=== PATIENT | female | born 1990 | race Caucasian/White ===

== ENCOUNTER 2016-11-17 18:25 | Inpatient (IN) | payer OTHER ==
[~2016-11-17] VITALS: Ht 170.2 cm; Wt 96.6 kg
[2016-11-17 18:31] VITALS: Ht 170.2 cm; Wt 96.6 kg
--- NOTE | 2016-11-17 19:10 | RADRPT ---
PROCEDURE: US OB CLINICAL INDICATION: Decreased movements TECHNIQUE: Multiple sonographic images of the pelvis were obtained. The images were reviewed on a PACS workstation. COMPARISON: None FINDINGS: The cervix is not well visualized. There is a single viable intrauterine gestation. Cardiac activity is present with 148 beats per minute. There is a vertex presentation. The placenta is anterior. There is no evidence for an abruption or placenta previa. There is a subjectively normal amount of amniotic fluid. Measurements were made in order to determine age. The results are as follows (cm): BPD =8.67 HC =31.85 AC =34.16 FL =7.27 Estimated gestational age by ultrasound of approximately 36 weeks, 4 days. The estimated date of delivery by ultrasound is 12/11/2016. Reported gestational age by LMP of approximately 35 weeks, 4 days. The reported date of delivery by LMP is 12/18/2016. EFW = 3155 grams (89th percentile) IMPRESSION: Single viable intrauterine gestation of approximately 36 weeks, 4 days . The estimated date of delivery is 12/11/2016 . Dating by ultrasound is within 1 week of dating by LMP. Estimated weight in the 89th percentile. RPTAT: EE Physician Misty Date Time Electronically viewed and signed by Physician Misty on 11/17/2016 19:09 /
--- NOTE | 2016-11-17 19:10 | RADRPT ---
PROCEDURE: US OB biophysical profile. CLINICAL INDICATION: evaluation TECHNIQUE: Multiple sonographic images of the pelvis were obtained. The images were reviewed on a PACS workstation. COMPARISON: No prior studies are available for comparison. FINDINGS: There is a single viable intrauterine gestation. Cardiac activity is present with 144 beats per min mel. There is a vertex presentation. The placenta is anterior. There is no evidence of placental abruption. There is a normal amount of amniotic fluid with an ALMA = 11.0 cm. Biophysical profile: movement 2/2 tone 2/2. breathing 2/2 ALMA 2/2 Total 05/29 RPTAT: AA . IMPRESSION: Normal biophysical profile. Normal ALMA. Physician Misty Date Time Electronically viewed and signed by Physician Misty on 11/17/2016 19:10 /
[2016-11-17 21:22] LABS: BASOPHILS % 0.3 % (0.0-2.0); EOSINOPHILS % 0.2 % (0.0-7.0); HEMATOCRIT 41.8 % (37.0-47.0); HEMOGLOBIN 14.7 g/dl (12.0-16.0); LYMPHOCYTES # 2.2 10^3/ul (0.8-2.9); LYMPHOCYTES % 17.8 % (15.0-51.0); MEAN CORPUSCULAR HEMOGLOBIN 29.3 pg (29.0-33.0); MEAN CORPUSCULAR HGB CONC 35.1 g/dl (32.0-37.0); MEAN CORPUSCULAR VOLUME 83.4 fl (82.0-101.0); MONOCYTE # 0.9 10^3/ul (0.3-0.9); MONOCYTES % 7.4 % (0.0-11.0); NEUTROPHIL # 9.2 10^3/ul (1.6-7.5); NEUTROPHILS % 74.3 % (39.0-77.0); PLATELET COUNT 196 10^3/UL (140-440); RED BLOOD COUNT 5.01 10^6/ul (4.20-5.40); RED CELL DISTRIBUTION WIDTH 13.2 % (11.5-14.5); UNCORRECTED WBC 12.4 10^3/ul (4.8-10.8); WHITE BLOOD COUNT 12.4 10^3/ul (4.8-10.8)
[2016-11-17 21:23] LABS: CONDITION 1
[2016-11-17 21:23] LABS: ADD UMIC YES; URINE BILIRUBIN (Dip) NEGATIVE (NEGATIVE); URINE BLOOD (Dip) NEGATIVE (NEGATIVE); URINE COLOR LT. YELLOW (YELLOW); URINE GLUCOSE (Dip) NEGATIVE (NEGATIVE); URINE KETONES (Dip) 40 (NEGATIVE); URINE LEUKOCYTE ESTERASE (Dip) 1+ (NEGATIVE); URINE NITRITE (Dip) NEGATIVE (NEGATIVE); URINE TOTAL PROTEIN (Dip) NEGATIVE (NEGATIVE); URINE UROBILINOGEN (Dip) 0.2 E.U./dL (0.1-1.0)
[2016-11-17 21:25] LABS: ALBUMIN 3.6 g/dl (3.3-4.9); POTASSIUM 3.7 mmol/L (3.5-5.1)
[2016-11-17 21:27] LABS: CREATININE 0.53 mg/dl (0.44-1.00); INR 1.01; PROTIME 13.3 Sec (12.2-14.2)
[2016-11-17 21:28] LABS: ALBUMIN/GLOBULIN RATIO 0.9; BILIRUBIN,INDIRECT 0.5 mg/dl (0-1.1); BILIRUBIN,TOTAL 0.5 mg/dl (0.2-1.3); CALCIUM 9.4 mg/dl (8.4-10.2); PARTIAL THROMBOPLASTIN TIME 28.8 Sec (25.0-35.0); TOTAL PROTEIN 7.6 g/dl (6.1-8.1); URIC ACID 4.5 mg/dl (3.1-7.9)
[2016-11-17 21:50] LABS: BACTERIA,URINE MANY
[2016-11-17 21:51] LABS: SQUAMOUS EPITHELIAL CELL,UR MANY; URINE RBCS 0-2 /HPF (0)
[2016-11-18] MEDS: MULTIVIT/MIN/FOLATE/IRON/PREN TAB PO SCH (10:03)
--- NOTE | 2016-11-18 15:55 | HP ---
Date/Time of Note Date/Time of Note DATE: 11/18/16 TIME: 15:50 OB - History Hx of Present Chief Complaint: Decreased movement. Estimated Due Date: Dec 18, 2016 : 3 Para: 1 Care: Good Care Ultrasounds: Normal mid trimester US Obstetrical Complications: None Medical Complications: None Past Family/Social History * Past Medical, Surgical, Family and Obstetric Histories reviewed from chart. OB Admission Exam Vital Signs Vital Signs BP 143/73 on admission Physical Exam HEENT: WNL Heart: Rhythm Normal Lungs: Clear Abdomen: WNL Extremities: Normal Reflexes: Normal Heart Rate: 140's Accelerations: Accelerations Present Decelerations: No Decelerations Varibility: Moderate Last 72 hours Lab Results CBC & BMP 11/17/16 20:55 Liver Function Test 11/17/16 20:55 Alanine Aminotransferase (ALT/SGPT) 20 Albumin 3.6 Alkaline Phosphatase 126 H Aspartate Amino Transf (AST/SGOT) 18 Direct Bilirubin 0.00 Total Protein 7.6 OB Assessment/Plan Reason for admission: other Other Assessment: R/O preeclampsia Plan: Other Other plan: Admit. PIH panel 24 hour urine collection. FERNANDO AVINA MD Nov 18, 2016 15:55
[2016-11-18 19:02] LABS: COLLECTION PERIOD 24 hrs
[2016-11-18 20:14] LABS: COLLECTION PERIOD 24 hrs
[2016-11-18 20:17] LABS: SCRET 0.53 mg/dl (0.44-1.00)
[2016-11-19] MEDS: MULTIVIT/MIN/FOLATE/IRON/PREN TAB PO SCH (08:40)
--- NOTE | 2016-11-20 00:05 | DS ---
DATE OF ADMISSION: 11/17/2016 DATE OF DISCHARGE: 11/19/2016 ADMITTING DIAGNOSIS: at 35 weeks, rule out preeclampsia. HISTORY: A 26-year-old female, 3, para 1, estimated date of delivery 12/18/2016, at 35 week s' gestation presented with complaint of decreased movement. On evaluation, the patient was n oted to have elevated blood pressure, blood pressure 143/73. The patient was admitted for evaluatio n of preeclampsia. The patient had workup with -induced hypertension panel and 24-hour uri ne collection. The patient was monitored closely. The patient's blood pressure improved with rest. The results of -induced hypertension panel were normal. Twenty-hour urine collection was done, but the total protein was not available as it was sent to an outside laboratory which would t rosales a few days for the results to come back. The patient's blood pressure has been normal. h eart tracing has been reassuring. The patient is discharged on 11/19/2016. CONDITION ON DISCHARGE: Stable. DISCHARGE INSTRUCTIONS: Diet regular. Activities as tolerated. MEDICATION: Continue with vitamins. FOLLOWUP: In 2 days for antepartum testing. FINAL DIAGNOSES: 1. , not delivered. 2. Decreased movements. 3. Gestational hypertension. Dictated By: FERNANDO AVINA MD GD/NTS Conf#: [id number] DID#: [id number]
== END 2016-11-19 12:47 | disposition home or self-care (01) | DRG 782 ==
LOC: OBT 18:25 → L-D 18:25 → OBT 20:11 → OBG 20:11
PROVIDERS: ADMIT Obstetrics & Gynecology; ATTEND Obstetrics & Gynecology
DX: O76 Abnormality in fetal heart rate and rhythm complicating labor and delivery (principal); O13.3 Gestational [pregnancy-induced] hypertension without significant proteinuria, third trimester; Z3A.35 35 weeks gestation of pregnancy
CPT/HCPCS: 76815; 76818; 80053; 81001; 81003; 82575; 84156; 84560; 85025; 85384; 85610; 85730; G0463

== ENCOUNTER 2016-11-21 08:25 | Outpatient (CLI) | payer OTHER ==
[~2016-11-21] VITALS: Ht 170.2 cm; Wt 98.1 kg
[2016-11-21 08:32] VITALS: BP 125/65; PULSE 96; RESP 19; Ht 170.2 cm; Wt 98.1 kg
[2016-11-21 08:37] LABS: URINE BLOOD (Dip) POC Negative (NEGATIVE)
--- NOTE | 2016-11-21 09:03 | RADRPT ---
PROCEDURE: OB ultrasound for biophysical profile with ALMA. CLINICAL INDICATION: induced hypertension. Follow-up. TECHNIQUE: Multiple sonographic images of the gravid uterus were obtained. The images were review ed on a PACS workstation. COMPARISON: Exam day 11/17/2016. FINDINGS: breathing movement = 2/2 tone = 2/2 motion = 2/2 ALMA = 2/2 There is a single viable intrauterine gestation with cardiac and a heart rate of 137 bpm. Ther e is a cephalic presentation and an anterior, grade 1/2 placenta. There is no evidence of abruption or placenta previa. ALMA = 7.13 cm IMPRESSION: 1. Single viable intrauterine gestation. 2. Biophysical profile = 8/8. 3. ALMA = 7.13 cm, consistent with borderline oligohydramnios. RPTAT: GG .Tenzin Barber MD, Date Time Electronically viewed and signed by .Tenzin Barber MD, on 11/21/2016 09:03 .P/
--- NOTE | 2016-11-21 09:31 | TRIAGE ---
OB Triage Datetime Report Generated by CPN: 11/21/2016 09:30 Datetime: 11/21/2016 09:20 Maternal Assessment Level of Consciousness: Fully Conscious DTR's/Clonus: DTRs 1+ Headache: Denies Blurred Vision: No Respiratory Effort: Unlabored Breath Sounds, Left: Clear and Equal Breath Sounds, Right: Clear and Equal Nausea/Vomiting: Denies RUQ Epigastric Pain: Denies Facial Edema: None Labor Evaluation Frequency: X1 Monitor Mode: External Duration (sec)2399: 60 Quality: Mild Pattern: Normal: <= 5 Contractions in 10 Minutes Resting Tone [place]: Relaxed Heart Rate FHR Baseline Rate: 135 Monitor Mode: External US Variability: Moderate 6-25 bpm Accelerations: 15X15 Decelerations: None Category: Category I Pain Assessment Pain Scale: 0 Pain Presence: None/Denies Pain Type: N/A Pain Goal: 3 Vaginal Exam Membrane Status: Intact Datetime: 11/21/2016 08:50 Maternal Assessment Level of Consciousness: Fully Conscious DTR's/Clonus: DTRs 1+ Headache: Denies Breath Sounds, Left: Clear and Equal Breath Sounds, Right: Clear and Equal Nausea/Vomiting: Denies RUQ Epigastric Pain: Denies Labor Evaluation Frequency: NONE Monitor Mode: External Resting Tone [place]: Relaxed Heart Rate FHR Baseline Rate: 135 Monitor Mode: External US Variability: Moderate 6-25 bpm Accelerations: 15X15 Decelerations: None Category: Category I Pain Assessment Pain Scale: 0 Pain Presence: None/Denies Pain Type: N/A Pain Goal: 3 Vaginal Exam Membrane Status: Intact Datetime: 11/21/2016 08:28 Assessment Type: Triage Maternal Assessment Level of Consciousness: Fully Conscious DTR's/Clonus: DTRs 2+; No Clonus Headache: Denies Blurred Vision: No Respiratory Effort: Unlabored; Regular Rhythm; Equal Expansion Breath Sounds, Left: Clear and Equal Breath Sounds, Right: Clear and Equal Nausea/Vomiting: Denies RUQ Epigastric Pain: Denies Lower Extremities Edema: None Degree: None Upper Extremities Edema: None Degree: None Facial Edema: None Fall Risk Assessment History of Falling: (0) No Secondary Diagnosis: (0) No Ambulatory Aid: (0) Bedrest/Nurse Assist IV Therapy: (0) No Gait: (0) Normal/Bedrest/Immobile Mental Status: (0) Oriented to Own Ability Fall Score: 0 Fall Risk Score Definition: No Risk: No action required Datetime: 11/21/2016 08:27 Time of Arrival: 11/21/2016 08:27 EGA: 36.1 Arrived By: Ambulatory Arrived From: Home Chief Complaint: PT CAME IN FOR F/U NST AND BPP FOR PIH AND 24 HR URINE COLLECTIONR ESULTS. PT DEN IES ANY HIGH BLOOD PRESSUR S/S AND STATES _ FM Movement: Present Contractions: Denies/Absent Rupture of Membranes: Denies Vaginal Bleeding: None Vaginal Discharge: Denies Recent Sexual Intercouse: Denies Abdominal Trauma: Not Applicable Patient Complaints: Other Additional Patient Complaints: NONE Time Provider Notified: 11/21/2016 08:40 Provider Notified: KAILYN Initial Plan: NST AND BPP Datetime: 11/19/2016 12:01 Temperature Route: Oral Labor Evaluation Frequency: X2/HR Monitor Mode: External Duration (sec)2399: 50 TO 60 SEC Pattern: Normal: <= 5 Contractions in 10 Minutes Resting Tone [place]: Relaxed Heart Rate FHR Baseline Rate: 130 Monitor Mode: External US FHR Baseline Changes: No Baseline Change Variability: Moderate 6-25 bpm Accelerations: 15X15 Category: Category I Datetime: 11/19/2016 11:00 Labor Evaluation Frequency: X2/HR Monitor Mode: External Duration (sec)2399: 60 TO 70 SEC Pattern: Normal: <= 5 Contractions in 10 Minutes Resting Tone [place]: Relaxed Heart Rate FHR Baseline Rate: 130 Monitor Mode: External US FHR Baseline Changes: No Baseline Change Variability: Moderate 6-25 bpm Accelerations: 15X15 Decelerations: None Category: Category I Datetime: 11/19/2016 10:00 Labor Evaluation Frequency: X3/HR Monitor Mode: External Duration (sec)2399: 60 TO 90 SEC Pattern: Normal: <= 5 Contractions in 10 Minutes Resting Tone [place]: Relaxed Heart Rate FHR Baseline Rate: 130 Monitor Mode: External US FHR Baseline Changes: No Baseline Change Variability: Moderate 6-25 bpm Accelerations: 15X15 Decelerations: None Category: Category I Datetime: 11/19/2016 09:00 Labor Evaluation Frequency: X2/HR Monitor Mode: External Duration (sec)2399: 60 TO 70 SEC Pattern: Normal: <= 5 Contractions in 10 Minutes Resting Tone [place]: Relaxed Heart Rate FHR Baseline Rate: 130 Monitor Mode: External US FHR Baseline Changes: No Baseline Change Variability: Moderate 6-25 bpm Accelerations: 15X15 Decelerations: None Category: Category I Datetime: 11/19/2016 07:50 Maternal Assessment Level of Consciousness: Fully Conscious DTR's/Clonus: DTRs 2+; No Clonus Headache: Denies Breath Sounds, Left: Clear and Equal Breath Sounds, Right: Clear and Equal Nausea/Vomiting: Denies RUQ Epigastric Pain: Denies Temperature Route: Oral Labor Evaluation Frequency: X2/HR Monitor Mode: External Duration (sec)2399: 60 SEC Pattern: Normal: <= 5 Contractions in 10 Minutes Resting Tone [place]: Relaxed Heart Rate FHR Baseline Rate: 130 Monitor Mode: External US FHR Baseline Changes: No Baseline Change Variability: Moderate 6-25 bpm Accelerations: 15X15 Decelerations: None Category: Category I Datetime: 11/19/2016 07:25 Assessment Type: Ongoing Assessment Blurred Vision: No Respiratory Effort: Unlabored; Regular Rhythm; Equal Expansion Lower Extremities Edema: None Degree: None Upper Extremities Edema: None Degree: None Facial Edema: None Fall Risk Assessment History of Falling: (0) No Secondary Diagnosis: (0) No Ambulatory Aid: (0) Bedrest/Nurse Assist IV Therapy: (0) No Gait: (0) Normal/Bedrest/Immobile Mental Status: (0) Oriented to Own Ability Fall Score: 0 Fall Risk Score Definition: No Risk: No action required Datetime: 11/19/2016 06:51 Labor Evaluation Frequency: x3 Monitor Mode: External Duration (sec)2399: 40-60 Quality: Mild Resting Tone [place]: Relaxed Contraction Comments: pt without complaint of uc pain Heart Rate FHR Baseline Rate: 130 Monitor Mode: External US FHR Baseline Changes: No Baseline Change Variability: Moderate 6-25 bpm Accelerations: 15X15 Decelerations: None Category: Category I Datetime: 11/19/2016 06:00 Labor Evaluation Frequency: x3 Monitor Mode: External Duration (sec)2399: 40-60 Quality: Mild Resting Tone [place]: Relaxed Contraction Comments: pt without complaint of uc pain Heart Rate FHR Baseline Rate: 130 Monitor Mode: External US FHR Baseline Changes: No Baseline Change Variability: Moderate 6-25 bpm Accelerations: 15X15 Decelerations: None Category: Category I Datetime: 11/19/2016 05:35 Stage of : Antepartum Temperature Route: Oral Datetime: 11/19/2016 05:00 Labor Evaluation Frequency: x3 Monitor Mode: External Duration (sec)2399: 40 Quality: Mild Resting Tone [place]: Relaxed Contraction Comments: pt without complaint of uc pain Heart Rate FHR Baseline Rate: 145 Monitor Mode: External US Variability: Moderate 6-25 bpm Accelerations: 15X15 Decelerations: None Category: Category I Datetime: 11/19/2016 04:00 Labor Evaluation Frequency: x3 Monitor Mode: External Duration (sec)2399: 50-60 Quality: Mild Resting Tone [place]: Relaxed Contraction Comments: pt without complaint of uc pain. Heart Rate FHR Baseline Rate: 130 Monitor Mode: External US FHR Baseline Changes: No Baseline Change Variability: Moderate 6-25 bpm Accelerations: 15X15 Decelerations: Variable Category: Category II Datetime: 11/19/2016 03:00 Labor Evaluation Frequency: x1 Monitor Mode: External Duration (sec)2399: 40 Quality: Mild Resting Tone [place]: Relaxed Contraction Comments: pt without complaint of uc pain Heart Rate FHR Baseline Rate: 135 Monitor Mode: External US FHR Baseline Changes: No Baseline Change Variability: Moderate 6-25 bpm Accelerations: 15X15 Decelerations: Variable Category: Category II Datetime: 11/19/2016 02:00 Labor Evaluation Frequency: x2 Monitor Mode: External Duration (sec)2399: 40-70 Quality: Mild Resting Tone [place]: Relaxed Contraction Comments: pt without complaint of uc pain Heart Rate FHR Baseline Rate: 140 Monitor Mode: External US Variability: Moderate 6-25 bpm Accelerations: 15X15 Decelerations: Variable Category: Category II Datetime: 11/19/2016 01:00 Labor Evaluation Frequency: x1 Monitor Mode: External Duration (sec)2399: 90 Quality: Mild Resting Tone [place]: Relaxed Contraction Comments: pt without complant of uc pain Heart Rate FHR Baseline Rate: 135 Monitor Mode: External US Variability: Moderate 6-25 bpm Accelerations: 15X15 Decelerations: Variable Category: Category II Datetime: 11/19/2016 00:05 Maternal Assessment Level of Consciousness: Fully Conscious Datetime: 11/19/2016 00:01 Stage of : Antepartum Temperature Route: Oral Datetime: 11/19/2016 00:00 Labor Evaluation Frequency: x2 Monitor Mode: External Duration (sec)2399: 40 Quality: Mild Resting Tone [place]: Relaxed Contraction Comments: pt without complaint of uc pain Heart Rate FHR Baseline Rate: 135 Monitor Mode: External US FHR Baseline Changes: No Baseline Change Variability: Moderate 6-25 bpm Accelerations: 15X15 Decelerations: Variable Category: Category II Comments: pt without complaint of uc pain Datetime: 11/18/2016 23:00 Labor Evaluation Frequency: x4 Monitor Mode: External Duration (sec)2399: 50-100 Quality: Mild Resting Tone [place]: Relaxed Contraction Comments: pt without complaint of uc pain. Heart Rate FHR Baseline Rate: 140 Monitor Mode: External US Variability: Moderate 6-25 bpm Accelerations: 15X15 Decelerations: Variable Category: Category II Datetime: 11/18/2016 22:00 Labor Evaluation Frequency: x2 Monitor Mode: External Duration (sec)2399: 40-60 Quality: Mild Resting Tone [place]: Relaxed Contraction Comments: pt without complaint of uc pain Heart Rate FHR Baseline Rate: 140 Monitor Mode: External US FHR Baseline Changes: No Baseline Change Variability: Moderate 6-25 bpm Accelerations: 15X15 Decelerations: Variable Category: Category II Datetime: 11/18/2016 21:00 Labor Evaluation Frequency: x1 Monitor Mode: External Duration (sec)2399: 60 Quality: Mild Resting Tone [place]: Relaxed Contraction Comments: pt without complaint of uc pain Heart Rate FHR Baseline Rate: 145 Monitor Mode: External US Variability: Moderate 6-25 bpm Accelerations: 15X15 Decelerations: Variable Category: Category II Pain Assessment Pain Scale: 0 Pain Presence: None/Denies Datetime: 11/18/2016 20:32 Comments: EFM off Pt up OOB to shower Datetime: 11/18/2016 20:00 Assessment Type: Ongoing Assessment Maternal Assessment Level of Consciousness: Fully Conscious DTR's/Clonus: DTRs 2+; No Clonus Headache: Denies Blurred Vision: No Respiratory Effort: Unlabored; Regular Rhythm; Equal Expansion Breath Sounds, Left: Clear and Equal Breath Sounds, Right: Clear and Equal Nausea/Vomiting: Denies RUQ Epigastric Pain: Denies Lower Extremities Edema: None Degree: None Upper Extremities Edema: None Degree: None Facial Edema: None Fall Risk Assessment History of Falling: (0) No Secondary Diagnosis: (0) No Ambulatory Aid: (0) Bedrest/Nurse Assist IV Therapy: (0) No Gait: (0) Normal/Bedrest/Immobile Mental Status: (0) Oriented to Own Ability Fall Score: 0 Fall Risk Score Definition: No Risk: No action required Labor Evaluation Frequency: x2 Monitor Mode: External Duration (sec)2399: 40-50 Quality: Mild Resting Tone [place]: Relaxed Contraction Comments: pt without complaint of uc pain Heart Rate FHR Baseline Rate: 140 Monitor Mode: External US Variability: Moderate 6-25 bpm Accelerations: 15X15 Decelerations: None Category: Category I Pain Assessment Pain Scale: 0 Pain Presence: None/Denies Datetime: 11/18/2016 19:52 Stage of : Antepartum Temperature Route: Oral Datetime: 11/18/2016 19:00 Labor Evaluation Frequency: x1 Monitor Mode: External Duration (sec)2399: 70 Quality: Mild Resting Tone [place]: Relaxed Heart Rate FHR Baseline Rate: 135 Monitor Mode: External US FHR Baseline Changes: No Baseline Change Variability: Moderate 6-25 bpm Accelerations: 15X15 Decelerations: Variable Datetime: 11/18/2016 18:00 Labor Evaluation Frequency: x4 Monitor Mode: External Duration (sec)2399: 60-80 Quality: Mild Resting Tone [place]: Relaxed Heart Rate FHR Baseline Rate: 140 Monitor Mode: External US FHR Baseline Changes: No Baseline Change Variability: Moderate 6-25 bpm Accelerations: 15X15 Decelerations: None Pain Assessment Pain Scale: 0 Pain Presence: None/Denies Datetime: 11/18/2016 17:00 Labor Evaluation Frequency: x5 Monitor Mode: External Duration (sec)2399: 60-80 Quality: Mild Resting Tone [place]: Relaxed Heart Rate FHR Baseline Rate: 140 Monitor Mode: External US FHR Baseline Changes: No Baseline Change Variability: Moderate 6-25 bpm Accelerations: 15X15 Decelerations: None Pain Assessment Pain Scale: 0 Pain Presence: None/Denies Datetime: 11/18/2016 16:00 Labor Evaluation Frequency: x6 Monitor Mode: External Duration (sec)2399: 60-80 Quality: Mild Resting Tone [place]: Relaxed Heart Rate FHR Baseline Rate: 140 Monitor Mode: External US FHR Baseline Changes: No Baseline Change Variability: Moderate 6-25 bpm Accelerations: 15X15 Decelerations: None Category: Category I Pain Assessment Pain Scale: 0 Pain Presence: None/Denies Datetime: 11/18/2016 15:00 Labor Evaluation Frequency: x5 Monitor Mode: External Duration (sec)2399: 70 Quality: Mild Resting Tone [place]: Relaxed Heart Rate FHR Baseline Rate: 135 Monitor Mode: External US FHR Baseline Changes: No Baseline Change Variability: Moderate 6-25 bpm Accelerations: 15X15 Decelerations: None Category: Category I Pain Assessment Pain Scale: 0 Pain Presence: None/Denies Pain Type: N/A Datetime: 11/18/2016 14:00 Labor Evaluation Frequency: x5 Monitor Mode: External Duration (sec)2399: 70 Quality: Mild Resting Tone [place]: Relaxed Heart Rate FHR Baseline Rate: 135 Monitor Mode: External US FHR Baseline Changes: No Baseline Change Variability: Moderate 6-25 bpm Accelerations: 10X10 Decelerations: None Pain Assessment Pain Scale: 0 Pain Presence: None/Denies Pain Type: N/A Datetime: 11/18/2016 13:00 Labor Evaluation Frequency: x5 Monitor Mode: External Duration (sec)2399: 70 Quality: Mild Resting Tone [place]: Relaxed Pain Assessment Pain Scale: 0 Pain Presence: None/Denies Pain Type: N/A Datetime: 11/18/2016 12:00 Labor Evaluation Frequency: x5 Monitor Mode: External Duration (sec)2399: 70 Quality: Mild Resting Tone [place]: Relaxed Heart Rate FHR Baseline Rate: 140 Monitor Mode: External US FHR Baseline Changes: No Baseline Change Variability: Moderate 6-25 bpm Accelerations: 15X15 Decelerations: None Category: Category I Pain Assessment Pain Scale: 0 Pain Presence: None/Denies Pain Type: N/A Datetime: 11/18/2016 11:00 Labor Evaluation Frequency: x5 Monitor Mode: External Duration (sec)2399: 80 Quality: Mild Resting Tone [place]: Relaxed Heart Rate FHR Baseline Rate: 140 Monitor Mode: External US FHR Baseline Changes: No Baseline Change Variability: Moderate 6-25 bpm Accelerations: 15X15 Decelerations: None Datetime: 11/18/2016 10:00 Labor Evaluation Frequency: irregular Monitor Mode: External Duration (sec)2399: 60 Quality: Mild Resting Tone [place]: Relaxed Contraction Comments: denies feeling contractions Heart Rate FHR Baseline Rate: 140 Monitor Mode: External US FHR Baseline Changes: No Baseline Change Variability: Moderate 6-25 bpm Accelerations: 15X15 Decelerations: None Pain Assessment Pain Scale: 0 Pain Presence: None/Denies Pain Type: N/A Datetime: 11/18/2016 09:00 Labor Evaluation Frequency: x8 Monitor Mode: External Duration (sec)2399: 50-80 Quality: Mild Resting Tone [place]: Relaxed Heart Rate FHR Baseline Rate: 135 Monitor Mode: External US FHR Baseline Changes: No Baseline Change Variability: Moderate 6-25 bpm Accelerations: 10X10 Decelerations: None Datetime: 11/18/2016 08:00 Assessment Type: Ongoing Assessment Maternal Assessment Level of Consciousness: Fully Conscious DTR's/Clonus: DTRs 2+; No Clonus Headache: Denies Blurred Vision: No Respiratory Effort: Unlabored; Regular Rhythm; Equal Expansion Breath Sounds, Left: Clear and Equal Breath Sounds, Right: Clear and Equal Nausea/Vomiting: Denies RUQ Epigastric Pain: Denies Lower Extremities Edema: None Degree: None Upper Extremities Edema: None Degree: None Facial Edema: None Fall Risk Assessment History of Falling: (0) No Secondary Diagnosis: (0) No Ambulatory Aid: (0) Bedrest/Nurse Assist IV Therapy: (0) No Gait: (0) Normal/Bedrest/Immobile Mental Status: (0) Oriented to Own Ability Fall Score: 0 Fall Risk Score Definition: No Risk: No action required Labor Evaluation Frequency: x3 Labor Evaluation Frequency: IRREGUAR Monitor Mode: External Duration (sec)2399: 50 Quality: Mild Resting Tone [place]: Relaxed Heart Rate FHR Baseline Rate: 130 Monitor Mode: External US FHR Baseline Changes: No Baseline Change Variability: Moderate 6-25 bpm Accelerations: 15X15 Decelerations: None Pain Assessment Pain Scale: 0 Pain Presence: None/Denies Pain Type: N/A Datetime: 11/18/2016 07:52 Temperature Route: Oral Datetime: 11/18/2016 06:50 Labor Evaluation Frequency: irregular Monitor Mode: External Duration (sec)2399: 40-50 Quality: Mild Resting Tone [place]: Relaxed Heart Rate FHR Baseline Rate: 135 Monitor Mode: External US Variability: Moderate 6-25 bpm Accelerations: 15X15 Decelerations: None Category: Category I Pain Presence: None/Denies Pain Type: N/A Datetime: 11/18/2016 05:52 Labor Evaluation Frequency: x2 Monitor Mode: External Duration (sec)2399: 40-60 Quality: Mild Resting Tone [place]: Relaxed Heart Rate FHR Baseline Rate: 135 Monitor Mode: External US Variability: Moderate 6-25 bpm Accelerations: 15X15 Decelerations: None Category: Category I Pain Presence: None/Denies Pain Type: N/A Datetime: 11/18/2016 04:50 Heart Rate FHR Baseline Rate: 135 Monitor Mode: External US Variability: Moderate 6-25 bpm Accelerations: 15X15 Decelerations: None Category: Category I Comments: loc due to maternal movements. Pain Presence: None/Denies Pain Type: N/A Datetime: 11/18/2016 03:40 Labor Evaluation Frequency: 0 Monitor Mode: External Resting Tone [place]: Relaxed Heart Rate FHR Baseline Rate: 140 Monitor Mode: External US Variability: Moderate 6-25 bpm Accelerations: 15X15 Decelerations: None Category: Category I Pain Presence: None/Denies Pain Type: N/A Datetime: 11/18/2016 02:40 Labor Evaluation Frequency: 0 Monitor Mode: External Duration (sec)2399: denies Resting Tone [place]: Relaxed Heart Rate FHR Baseline Rate: 140 Monitor Mode: External US Variability: Moderate 6-25 bpm Accelerations: 15X15 Decelerations: None Category: Category I Comments: loc due to maternal movements. Pain Presence: None/Denies Pain Type: N/A Datetime: 11/18/2016 01:38 Labor Evaluation Frequency: x6 Monitor Mode: External Duration (sec)2399: 40-50 Quality: Mild Resting Tone [place]: Relaxed Heart Rate FHR Baseline Rate: 140 Monitor Mode: External US Variability: Moderate 6-25 bpm Accelerations: 15X15 Decelerations: None Category: Category I Pain Presence: None/Denies Pain Type: N/A Datetime: 11/18/2016 00:40 Labor Evaluation Frequency: occasional Monitor Mode: External Duration (sec)2399: 40-50 Quality: Mild Resting Tone [place]: Relaxed Heart Rate FHR Baseline Rate: 140 Monitor Mode: External US Variability: Moderate 6-25 bpm Accelerations: 15X15 Decelerations: None Category: Category I Pain Presence: None/Denies Pain Type: N/A Datetime: 11/17/2016 23:40 Labor Evaluation Frequency: OCCASIONAL Monitor Mode: External Duration (sec)2399: 40 Quality: Mild Resting Tone [place]: Relaxed Heart Rate FHR Baseline Rate: 145 Monitor Mode: External US Variability: Moderate 6-25 bpm Accelerations: 15X15 Decelerations: Variable Category: Category II Pain Presence: None/Denies Pain Type: N/A Datetime: 11/17/2016 22:52 Stage of : Antepartum Assessment Type: Ongoing Assessment Maternal Assessment Level of Consciousness: Fully Conscious DTR's/Clonus: DTRs 2+; No Clonus Headache: Denies Blurred Vision: No Respiratory Effort: Unlabored; Regular Rhythm; Equal Expansion Breath Sounds, Left: Clear and Equal Breath Sounds, Right: Clear and Equal Nausea/Vomiting: Denies RUQ Epigastric Pain: Denies Lower Extremities Edema: None Degree: None Upper Extremities Edema: None Degree: None Facial Edema: None Temperature Route: Oral Fall Risk Assessment History of Falling: (0) No Secondary Diagnosis: (0) No Ambulatory Aid: (0) Bedrest/Nurse Assist IV Therapy: (0) No Gait: (0) Normal/Bedrest/Immobile Mental Status: (0) Oriented to Own Ability Fall Score: 0 Fall Risk Score Definition: No Risk: No action required Pain Presence: None/Denies Datetime: 11/17/2016 22:40 Labor Evaluation Frequency: IRREGULAR Monitor Mode: External Duration (sec)2399: 40-60 Quality: Mild Resting Tone [place]: Relaxed Heart Rate FHR Baseline Rate: 150 Monitor Mode: External US Variability: Moderate 6-25 bpm Accelerations: 15X15 Decelerations: None Category: Category I Pain Presence: None/Denies Pain Type: N/A Datetime: 11/17/2016 21:00 Stage of : OB Triage Labor Evaluation Frequency: Occassional Monitor Mode: External Duration (sec)2399: 40-50 Quality: Mild Pattern: Normal: <= 5 Contractions in 10 Minutes Resting Tone [place]: Relaxed Heart Rate FHR Baseline Rate: 130 Monitor Mode: External US FHR Baseline Changes: No Baseline Change Variability: Moderate 6-25 bpm Accelerations: 15X15 Decelerations: None Category: Category I Datetime: 11/17/2016 20:11 Stage of : OB Triage Datetime: 11/17/2016 20:00 Stage of : OB Triage Labor Evaluation Frequency: Occassional Monitor Mode: External Duration (sec)2399: 40-50 Quality: Mild Pattern: Normal: <= 5 Contractions in 10 Minutes Resting Tone [place]: Relaxed Heart Rate FHR Baseline Rate: 135 Monitor Mode: External US FHR Baseline Changes: No Baseline Change Variability: Moderate 6-25 bpm Accelerations: 15X15 Decelerations: None Category: Category I Datetime: 11/17/2016 18:40 Stage of : OB Triage Assessment Type: Triage Maternal Assessment Level of Consciousness: Fully Conscious DTR's/Clonus: DTRs 2+; No Clonus Headache: Denies Blurred Vision: No Respiratory Effort: Unlabored; Regular Rhythm; Equal Expansion Breath Sounds, Left: Clear and Equal Breath Sounds, Right: Clear and Equal Nausea/Vomiting: Denies RUQ Epigastric Pain: Denies Lower Extremities Edema: None Degree: None Upper Extremities Edema: None Degree: None Facial Edema: None Temperature Route: Axillary Fall Risk Assessment History of Falling: (0) No Secondary Diagnosis: (0) No Ambulatory Aid: (0) Bedrest/Nurse Assist IV Therapy: (0) No Gait: (0) Normal/Bedrest/Immobile Mental Status: (0) Oriented to Own Ability Fall Score: 0 Fall Risk Score Definition: No Risk: No action required Labor Evaluation Frequency: 0 Monitor Mode: External Resting Tone [place]: Relaxed Heart Rate FHR Baseline Rate: 155 Monitor Mode: External US Variability: Moderate 6-25 bpm Decelerations: None Category: Category I Pain Assessment Pain Scale: 0 Pain Presence: None/Denies Pain Type: N/A Datetime: 11/17/2016 18:39 EGA: 35.4 Datetime: 11/17/2016 18:38 Time of Arrival: 11/17/2016 18:24 Arrived By: Ambulatory Arrived From: Dr. Trevino Chief Complaint: SENT FROM OFFICE FOR DFM, CRAMPING, PINK DISCHARGE Movement: Decreased Contractions: Denies/Absent Rupture of Membranes: Denies Vaginal Bleeding: None Vaginal Discharge: Present Recent Sexual Intercouse: Denies Abdominal Trauma: Not Applicable Patient Complaints: Cramping Initial Plan: MONITOR, BPP/EFW
--- NOTE | 2016-11-21 09:49 | CONS ---
Date/Time of Note Date/Time of Note DATE: 11/21/16 TIME: 09:41 Consultation Date/Type/Reason Admit Date/Time November 21, 2016. This is a triage consult. This patient is a 26 years old 3 para 1 1. EDC of 12/14/1971, which makes her 36 weeks and 1 day. She was seen in triage 3 days ago due to cramping and elevated blood pressure . 24 hours urine collection for protein and creatinine clearance was initiated on that date. The results are not available. Today the patient is here for follow-up on her possible PIH condition. On examination ,she is a well-developed well-nourished lady around 26 weeks. Ear nose & throat appears to be normal. Neck is normal ,no neck vein distention, no thyromegaly, No lymph node enlargement anywhere in the body. Her chest is clear to auscultation percussion, no rales. Heart; normal sinus rhythm ,no murmur. Breasts are soft for renal mass. Abdomen measures about 25 cm.The fetus appears to be in vertex presentation.No contraction at this time. Extremities; no edema no varicose. Knee jerk reflex is normal. On ultrasound study; biophysical profile was reported 8 over 8. The ALMA was 7.13 Vital signs were stable. Blood pressure 125/65. Pulse rate 96, respiration 18, and temperature 98.6 . With these findings the patient was discharged home to be followed and clinic tomorrow. 24-hour urine collection for protein will be available tomorrow. 28 End of dictation thank you .28 Initial Consult Date 28 Exam/Review of Systems Vital Signs Vitals Vital Signs Date Time Temp Pulse Resp B/P Pulse Ox O2 Delivery O2 Flow Rate FiO2 11/21/16 08:32 98.6 96 19 125/65 99 Results Results 24 hrs Laboratory Tests Test 11/21/16 08:39 Bedside Urine Blood Negative Bedside Urine Glucose (UA) Negative Bedside Urine Ketones (LAB) Negative Bedside Urine Leukocyte Esterase (L 2+ H Bedside Urine Nitrite (LAB) Negative Bedside Urine Protein (LAB) Negative Bedside Urine pH (LAB) 7.0 VINCE PATRICIA MD Nov 21, 2016 09:49 VINCE PATRICIA MD Nov 21, 2016 09:49
== END 2016-11-21 09:25 | disposition home or self-care (01) ==
LOC: OBT 08:25 → L-D 08:25 → OBT 09:25
PROVIDERS: ATTEND Obstetrics & Gynecology
DX: O26.893 Other specified pregnancy related conditions, third trimester (principal); R10.9 Unspecified abdominal pain; R03.0 Elevated blood-pressure reading, without diagnosis of hypertension; Z3A.36 36 weeks gestation of pregnancy
CPT/HCPCS: 76818; 81003; Z7500; G0463

== ENCOUNTER 2016-12-11 14:07 | Inpatient (IN) | payer OTHER ==
[~2016-12-11] VITALS: Ht 170.2 cm; Wt 97.4 kg
[2016-12-11 15:31] VITALS: Ht 170.2 cm; Wt 97.4 kg
[2016-12-11 15:32] VITALS: BP 138/64; PULSE 88; RESP 18
[2016-12-11] MEDS: LACTATED RINGER'S 1,000 ML IV SCH ×2 (15:45→20:49)
[2016-12-11 15:46] LABS: BASOPHIL # 0.1 10^3/ul (0.0-0.1); BASOPHILS % 0.4 % (0.0-2.0); EOSINOPHILS % 0.2 % (0.0-7.0); HEMATOCRIT 42.9 % (37.0-47.0); HEMOGLOBIN 14.8 g/dl (12.0-16.0); LYMPHOCYTES % 16.2 % (15.0-51.0); MEAN CORPUSCULAR HEMOGLOBIN 29.7 pg (29.0-33.0); MEAN CORPUSCULAR HGB CONC 34.5 g/dl (32.0-37.0); MEAN CORPUSCULAR VOLUME 86.1 fl (82.0-101.0); MEAN PLATELET VOLUME 9.5 fl (7.4-10.4); MONOCYTE # 0.9 10^3/ul (0.3-0.9); MONOCYTES % 7.1 % (0.0-11.0); NEUTROPHIL # 9.2 10^3/ul (1.6-7.5); NEUTROPHILS % 76.1 % (39.0-77.0); PLATELET COUNT 191 10^3/UL (140-440); RED BLOOD COUNT 4.98 10^6/ul (4.20-5.40); RED CELL DISTRIBUTION WIDTH 13.7 % (11.5-14.5); UNCORRECTED WBC 12.1 10^3/ul (4.8-10.8); WHITE BLOOD COUNT 12.1 10^3/ul (4.8-10.8)
[2016-12-11 15:49] LABS: CONDITION 1; INR 0.93; PROTIME 12.5 Sec (12.2-14.2)
[2016-12-11 15:50] LABS: PARTIAL THROMBOPLASTIN TIME 28.3 Sec (25.0-35.0)
[2016-12-11] MEDS ORDERED: LIDOCAINE 1% (MPF) 30 ML INJ INJ PRN (16:00)
[2016-12-11] MEDS ORDERED: BUTORPHANOL 2 MG INJ IV PRN ×2 (16:00)
[2016-12-11] MEDS ORDERED: OXYTOCIN 30 UNITS/LR 500 ML IV SCH ×3 (16:00→16:30)
[2016-12-11] MEDS ORDERED: MISOPROSTOL 200 MCG TAB PR PRN (16:00)
[2016-12-11] MEDS ORDERED: IBUPROFEN 600 MG TAB PO PRN (16:00)
[2016-12-11] MEDS ORDERED: OXYTOCIN 30 UNITS/LR 500 ML IV PRN (16:00)
[2016-12-11] MEDS ORDERED: METHYLERGONOVINE 0.2 MG INJ IM PRN (16:00)
[2016-12-11] MEDS ORDERED: CARBOPROST 250 MCG INJ IM PRN (16:00)
--- NOTE | 2016-12-11 23:37 | HP ---
Date/Time of Note Date/Time of Note DATE: 12/11/16 TIME: 23:34 OB - History Hx of Present Chief Complaint: contractions Estimated Due Date: Dec 18, 2016 : 3 Para: 1 Spontaneous : 1 Therapeutic : 0 Care: Good Care Ultrasounds: Normal mid trimester US Obstetrical Complications: None Medical Complications: None Past Family/Social History * Past Medical, Surgical, Family and Obstetric Histories reviewed from chart. GBS Status: Negative OB Admission Exam Vital Signs Vital Signs Vital Signs Date Time Temp Pulse Resp B/P Pulse Ox O2 Delivery O2 Flow Rate FiO2 12/11/16 15:32 99.0 88 18 138/64 Room Air Physical Exam HEENT: WNL Heart: Rhythm Normal Lungs: Clear Abdomen: WNL Extremities: Normal Cervical Dilatation: 4cm Effacement: 50% Station: -2 Membranes: Intact Heart Rate: 140's Accelerations: Accelerations Present Decelerations: No Decelerations Varibility: Moderate Last 72 hours Lab Results CBC & BMP 12/11/16 15:15 OB Assessment/Plan Reason for admission: active labor Plan: Expectant Management FERNANDO AVINA MD Dec 11, 2016 23:37
[2016-12-12] MEDS: LACTATED RINGER'S 1,000 ML IV PRN ×2 (00:59→01:44)
[2016-12-12] MEDS ORDERED: FENTAnyl 2MCG/ML-ROPIV 0.2% 100 ML ONE (01:08)
[2016-12-12] MEDS ORDERED: NALOXONE (0.4 MG/ML) INJ IV PRN (02:30)
[2016-12-12] MEDS ORDERED: FENTAnyl 2MCG/ML-ROPIV 0.2% 100 ML BAG EPI SCH (02:30)
--- NOTE | 2016-12-12 03:28 | LDN ---
Date/Time of Note Date/Time of Note DATE: 12/12/16 TIME: 03:26 Delivery Summary Placenta Delivered: Spontaneously Meconium: none Perineum intact?: Yes Perineal laceration repair: Vaginal laceration repaired with 3-0 chromic. Anesthesia type: Epidural Estimated blood loss: 200 Sponge & Needle done & correct: Yes All needle counts correct: Yes Any foreign bodies felt in the: No Problems: Infant Delivery Information Sex Infant Sex: female Apgars 1 Minute: 8 5 Minute: 9 Suctioning Nose & mouth suctioned at margie: Yes Delee suction performed: No Umbilical Cord Umbilical cord with: 3 Vessels Cord presentations: no nuchal cord Cord Blood was obtained: Yes Mother & Baby Disposition Disposition Mom & Baby to Maternity; Good: Yes FERNANDO AVINA MD Dec 12, 2016 03:28
[2016-12-12 05:05] VITALS: BP 118/77; PULSE 105; RESP 18
[2016-12-12] MEDS ORDERED: WITCH HAZEL/GLYCERIN PAD PR PRN (05:30)
[2016-12-12] MEDS ORDERED: CARBOPROST 250 MCG INJ IM PRN (05:30)
[2016-12-12] MEDS ORDERED: OXYTOCIN 30 UNITS/LR 500 ML IV PRN (05:30)
[2016-12-12] MEDS ORDERED: ACETAMINOPHEN 325 MG TAB PO PRN (05:30)
[2016-12-12] MEDS ORDERED: METHYLERGONOVINE 0.2 MG INJ IM PRN (05:30)
[2016-12-12] MEDS ORDERED: BENZOCAINE 20% 56 ML SPRAY TOP PRN (05:30)
[2016-12-12] MEDS ORDERED: ACETAMINOPHEN/CODEINE #3 TAB PO PRN (05:30)
[2016-12-12] MEDS ORDERED: DIBUCAINE 1% 30 GM OINT PR PRN (05:30)
[2016-12-12] MEDS ORDERED: MISOPROSTOL 200 MCG TAB PR PRN (05:30)
[2016-12-12] MEDS: IBUPROFEN 600 MG TAB PO SCH ×4 (05:38→23:39)
[2016-12-12] MEDS: LACTATED RINGER'S 1,000 ML IV* SCH ×3 (07:50→20:22)
[2016-12-12 09:18] VITALS: BP 112/54; PULSE 91; RESP 20
[2016-12-12] MEDS: SENNA/DOCUSATE NA (8.6MG/50MG) TAB PO SCH ×2 (09:49→21:08)
[2016-12-12 12:00] VITALS: BP 110/63; PULSE 67; RESP 18
[2016-12-12 16:04] VITALS: BP 112/66; PULSE 82; RESP 18
[2016-12-12 19:45] VITALS: BP 127/74; PULSE 86; RESP 19
[2016-12-12] MEDS ORDERED: LANOLIN 7 GM TUBE TOP PRN (22:00)
[2016-12-13 04:05] VITALS: BP 110/63; PULSE 74; RESP 18
[2016-12-13] MEDS: LACTATED RINGER'S 1,000 ML IV* SCH ×2 (05:19→13:19)
[2016-12-13] MEDS: IBUPROFEN 600 MG TAB PO SCH ×3 (05:50→18:08)
[2016-12-13 07:30] VITALS: BP 111/56; PULSE 80; RESP 19
[2016-12-13 09:22] LABS: BASOPHILS % 0.4 % (0.0-2.0); EOSINOPHILS # 0.1 10^3/ul (0.0-0.5); EOSINOPHILS % 1.5 % (0.0-7.0); HEMATOCRIT 36.9 % (37.0-47.0); HEMOGLOBIN 12.8 g/dl (12.0-16.0); LYMPHOCYTES # 2.5 10^3/ul (0.8-2.9); LYMPHOCYTES % 25.4 % (15.0-51.0); MEAN CORPUSCULAR HEMOGLOBIN 30.2 pg (29.0-33.0); MEAN CORPUSCULAR HGB CONC 34.7 g/dl (32.0-37.0); MEAN CORPUSCULAR VOLUME 86.9 fl (82.0-101.0); MEAN PLATELET VOLUME 9.1 fl (7.4-10.4); MONOCYTE # 1.1 10^3/ul (0.3-0.9); MONOCYTES % 10.6 % (0.0-11.0); NEUTROPHIL # 6.2 10^3/ul (1.6-7.5); NEUTROPHILS % 62.1 % (39.0-77.0); PLATELET COUNT 157 10^3/UL (140-440); RED BLOOD COUNT 4.25 10^6/ul (4.20-5.40); UNCORRECTED WBC 9.9 10^3/ul (4.8-10.8); WHITE BLOOD COUNT 9.9 10^3/ul (4.8-10.8)
[2016-12-13 09:23] LABS: CONDITION 1
[2016-12-13] MEDS: SENNA/DOCUSATE NA (8.6MG/50MG) TAB PO SCH ×2 (10:22→21:56)
[2016-12-13] MEDS ORDERED: INFLUENZA VIRUS VACCINE 0.5 ML SYG IM* ONE (11:00)
[2016-12-13 16:00] VITALS: BP 107/57; PULSE 69; RESP 19
[2016-12-13 19:50] VITALS: BP 133/77; PULSE 77; RESP 18
--- NOTE | 2016-12-13 20:18 | DS ---
Date/Time of Note Date/Time of Note DATE: 12/13/16 TIME: 20:17 Obstetrical Discharge Record Final Diagnosis Final Diagnosis: Term delivered Vaginal Delivery Obstetrical Delivery: Spontaneous, Laceration, Repaired Condition on Discharge Physical Assessment Voiding: Yes Bowel Movement: Yes Breast: Soft, non-tender Fundus: Firm Calf Tenderness: No Patient Condition: Stable FERNANDO AVINA MD Dec 13, 2016 20:18
[2016-12-14] MEDS: IBUPROFEN 600 MG TAB PO SCH ×4 (00:04→12:00)
[2016-12-14 04:10] VITALS: BP 123/65; PULSE 70
[2016-12-14] MEDS: LACTATED RINGER'S 1,000 ML IV* SCH ×2 (07:30→12:52)
[2016-12-14 08:38] VITALS: BP 114/75; PULSE 64; RESP 18
[2016-12-14] MEDS: SENNA/DOCUSATE NA (8.6MG/50MG) TAB PO SCH (08:39)
[2016-12-14] MEDS ORDERED: DIPHTH/TET/ACEL PERTUSS (ADULT) 0.5 ML VIAL IM* ONE (09:00)
== END 2016-12-14 13:41 | disposition home or self-care (01) | DRG 775 ==
LOC: L-D 14:07 → PP1 12-12 05:05 → EDSTATUS 12-18 14:02
PROVIDERS: ADMIT Obstetrics & Gynecology; ATTEND Obstetrics & Gynecology
PROC: 10E0XZZ Delivery of Products of Conception, External Approach (ICD-10-PCS; principal; 2016-12-12)
PROC: 0UQGXZZ Repair Vagina, External Approach (ICD-10-PCS; 2016-12-12)
PROC: 3E0234Z Introduction of Serum, Toxoid and Vaccine into Muscle, Percutaneous Approach (ICD-10-PCS; 2016-12-13)
PROC: 3E0234Z Introduction of Serum, Toxoid and Vaccine into Muscle, Percutaneous Approach (ICD-10-PCS; 2016-12-14)
DX: O71.4 Obstetric high vaginal laceration alone (principal); Z3A.39 39 weeks gestation of pregnancy; Z37.0 Single live birth; Z23 Encounter for immunization
CPT/HCPCS: 62319; 85025; 85610; 85730; 86592; 86900; 86901; 87340; 90686; 90715; 99464; J2590; J3010; J7120

== ENCOUNTER 2017-02-07 13:31 | Emergency (ER) | payer OTHER ==
[~2017-02-07] VITALS: Wt 90.0 kg
[2017-02-07] MEDS ORDERED: SOD CHLORIDE 0.9% 1,000 ML IV STA (17:21)
[2017-02-07] MEDS ORDERED: LEVETIRACETAM 1000 MG (PMX) 100 ML IVPB STA (17:28)
[2017-02-07 18:17] LABS: ADD SCAN DIFF NO
[2017-02-07 18:20] LABS: BASOPHILS % 0.4 % (0.0-2.0); EOSINOPHILS % 0.2 % (0.0-7.0); HEMATOCRIT 45.4 % (37.0-47.0); HEMOGLOBIN 15.6 g/dl (12.0-16.0); LYMPHOCYTES # 1.8 10^3/ul (0.8-2.9); LYMPHOCYTES % 17.4 % (15.0-51.0); MEAN CORPUSCULAR HEMOGLOBIN 29.8 pg (29.0-33.0); MEAN CORPUSCULAR HGB CONC 34.4 g/dl (32.0-37.0); MEAN CORPUSCULAR VOLUME 86.6 fl (82.0-101.0); MEAN PLATELET VOLUME 10.6 fl (7.4-10.4); MONOCYTE # 0.7 10^3/ul (0.3-0.9); MONOCYTES % 6.9 % (0.0-11.0); NEUTROPHIL # 7.7 10^3/ul (1.6-7.5); NEUTROPHILS % 74.7 % (39.0-77.0); PLATELET COUNT 248 10^3/UL (140-415); RED BLOOD COUNT 5.24 10^6/ul (4.20-5.40); RED CELL DISTRIBUTION WIDTH 12.6 % (11.5-14.5); WHITE BLOOD COUNT 10.3 10^3/ul (4.8-10.8)
[2017-02-07] MEDS ORDERED: SOD CHLORIDE 0.9% 100 ML ONE (18:25)
[2017-02-07] MEDS ORDERED: IOHEXOL 300MG/ML 150 ML BTL ONE (18:25)
[2017-02-07 18:27] LABS: ALBUMIN 4.8 g/dl (3.3-4.9)
[2017-02-07 18:28] LABS: POTASSIUM 3.9 mmol/L (3.5-5.1)
[2017-02-07 18:30] LABS: BILIRUBIN,INDIRECT 0.9 mg/dl (0-1.1); BILIRUBIN,TOTAL 0.9 mg/dl (0.2-1.3); CREATININE 0.64 mg/dl (0.44-1.00)
[2017-02-07 18:31] LABS: ALBUMIN/GLOBULIN RATIO 1.37; CALCIUM 9.3 mg/dl (8.4-10.2); TOTAL PROTEIN 8.3 g/dl (6.1-8.1)
--- NOTE | 2017-02-07 19:05 | RADRPT ---
PROCEDURE: CT head CLINICAL INDICATION: Seizure TECHNIQUE: Contiguous 2.5 mm axial images were obtained from the vertex to the skull base. No int ravenous contrast was administered. The calculated dose length product (DLP) = 630.20 mGy-cm. The CTDlvol = 45 mGy. One or more of the following dose reduction techniques were used: Automated expo sure control, adjustment of the mA and or KV according to patient size, or use of iterative reconstr uction technique. COMPARISON: None FINDINGS: There is no evidence of acute intracranial hemorrhage or acute territorial infarct. No mass or mass effect is seen on this noncontrast study. The ventricles and cisterns are normal in size and confi guration. The miles-white matter differentiation is within normal limits. The visualized paranasal sinuses are normally aerated. The bony calvarium is unremarkable IMPRESSION: Unremarkable unenhanced CT of the brain RPTAT: HH .Issac Guerin MD, MD Date Time Electronically viewed and signed by .Issac Guerin MD, on 02/07/2017 19:05 .W/
--- NOTE | 2017-02-07 20:18 | RADRPT ---
PROCEDURE: CT Abdomen and Pelvis with IV contrast. CLINICAL INDICATION: Pain. TECHNIQUE: CT scan of the abdomen and pelvis was performed on a multidetector slice CT scanner. 100 cc of Omnipaque 300 intravenous contrast material was utilized. Sagittal and coronal reformatted i mages were obtained from the axial source images. Images were reviewed on a high-resolution PACS wor kstation. Exam CTDlvol = 20 mGy and DLP = 1080 Gy-cm. One of the following 3 dose reduction techniqu es were used: Automated exposure control; adjustment of the mA and/or kV according to patient size; or use of iterative reconstruction technique. COMPARISON: None. FINDINGS: There is mild pelvic free fluid including the bilateral adnexa. There is a 2 cm probable left ovari an cyst with peripheral enhancing. Uterus is unremarkable. There is moderate retained stool throughout the colon. There is no obstruction or ileus. The appen saima is well visualized and normal in size. There is no evidence for diverticulitis. There is mild cu taneous thickening and infiltration surrounding the umbilicus. There is a very small fat containing periumbilical hernia. The liver is overall normal in size. No intrahepatic lesions are identified. The gallbladder is norm al in appearance. There is no definite biliary ductal dilation. Pancreas is normal in appearance. Th e spleen is unremarkable.. There are no adrenal masses. The aorta is normal caliber.. Kidneys are normal in appearance without hydronephrosis, mass or calculus. There is no perinephric c ollection. Ureters are of normal caliber and without evidence for an obstructing calculus The urinar y bladder is normal in appearance.. Uterus is normal appearance. Ovaries are not well visualized. Limited evaluation lung bases is unremarkable. The bones are unremarkable. IMPRESSION: 1. Probable left ovarian cyst. Mild pelvic free fluid. Ruptured ovarian cyst is suspected. 2. No evidence for appendicitis or diverticulitis. 3. Very small fat containing periumbilical hernia. Mild cutaneous thickening with adjacent subcuta neous infiltration involving the umbilicus. This may be an incidental appearance versus inflammatio n, recommend correlation to site of pain. 4. Moderate stool throughout the colon. No obstruction or ileus. 5. Otherwise negative. RPTAT: HMVK .Roger Bains MD, MD Date Time Electronically viewed and signed by .Roger Bains MD, MD on 02/07/2017 20:18 .K/
[2017-02-07] MEDS ORDERED: LEVE750T32 PO (21:24)
[2017-02-07] MEDS ORDERED: TRAM50TA2 PO (21:24)
--- NOTE | 2017-02-07 21:44 | ERD ---
ER Documentation Chief Complaint Date/Time DATE: 02/07/17 TIME: 21:24 Chief Complaint SUDDEN ONSET LLQ ABD PAIN NO VAG BLEED. NO N/V OR DIARRHEA HPI This 26-year-old female who is approximately 2 months she was asleep when she felt a sudden pain in her left adnexal region. She describes the pain is sharp and nonradiating. She called her he came into the room and the noticed that the patient then had what he described as a seizure. He said her eyes rolled back and she cleansed her teeth and she had shaking of her extremities for approximately 1 minute. After she stopped shaking she was not postictal and told him to call 911. He then got her up and took her into the living room where he went to lay her on the couch and she had the same episode again the same duration and again was not postictal. The patient says she does not remember these events. She has no abdominal pain now at all. No head trauma no recent history or any seizure history. She did not have preeclampsia or eclampsia at ROS All systems reviewed and are negative except as per history of present illness. Medications Home Meds Active Scripts Tramadol HCl (Tramadol HCl) 50 Mg Tablet, 50 MG PO Q4 Y for PAIN, #20 TAB Prov:SONDRA GRACE DO 02/07/17 Levetiracetam* (Keppra XR*) 750 Mg Tab.sr.24h, 1500 MG PO DAILY, #30 TAB Prov:SARAH GRACESTYIS Renetta. DO 02/07/17 Allergies Allergies: Coded Allergies: No Known Allergy (Unverified , 12/11/16) PMhx/Soc Medical and Surgical Hx: pt denies Medical Hx, pt denies Surgical Hx Hx Alcohol Use: No Hx Substance Use: No Hx Tobacco Use: No FmHx Family History: No coronary disease Physical Exam Vitals Vital Signs Date Time Temp Pulse Resp B/P Pulse Ox O2 Delivery O2 Flow Rate FiO2 02/07/17 13:34 98.5 80 18 130/80 98 Physical Exam Const: Well-developed, well-nourished Head: Atraumatic, normocephalic Eyes: Normal Conjunctiva, PERRLA, EOMI, normal sclera, no nystagmus ENT: Normal External Ears, Nose and Mouth, moist mucus membranes. Neck: Full range of motion. No meningismus, no lymphadenopathy. Resp: Clear to auscultation bilaterally, no wheezing, rhonchi, rales Cardio: Regular rate and rhythm, no murmurs, S1 S2 present Abd: Soft, non tender x 4, non distended. Normal bowel sounds, no guarding or rebound, no pulsitile abdominal masses or bruits Skin: No petechiae or rashes, no ecchymosis , no maculopapular rash Back: No midline or flank tenderness Ext: No cyanosis, or edema, FROM x 4, normal inspection, neurovascularly intact x 4 Neur: Awake and alert, STR 5/5 x 4, sensation intact x 4, no focal findings, cerebellum intact Psych: Normal Mood and Affect Result Diagram: 02/07/17174602/07/171746 Results 24 hrs Laboratory Tests Test 02/07/17 17:47 White Blood Count 10.310^3/ul Red Blood Count 5.2410^6/ul Hemoglobin 15.6g/dl Hematocrit 45.4% Mean Corpuscular Volume 86.6fl Mean Corpuscular Hemoglobin 29.8pg Mean Corpuscular Hemoglobin Concent 34.4g/dl Red Cell Distribution Width 12.6% Platelet Count 08868^3/UL Mean Platelet Volume 10.6fl Neutrophils % 74.7% Lymphocytes % 17.4% Monocytes % 6.9% Eosinophils % 0.2% Basophils % 0.4% Nucleated Red Blood Cells % 0.0/100WBC Neutrophils # 7.710^3/ul Lymphocytes # 1.810^3/ul Monocytes # 0.710^3/ul Eosinophils # 0.010^3/ul Basophils # 0.010^3/ul Nucleated Red Blood Cells # 0.010^3/ul Sodium Level 139mmol/L Potassium Level 3.9mmol/L Chloride Level 100mmol/L Carbon Dioxide Level 27mmol/L Anion Gap 16 Blood Urea Nitrogen 9mg/dl Creatinine 0.64mg/dl Glucose Level 95mg/dl Calcium Level 9.3mg/dl Total Bilirubin 0.9mg/dl Direct Bilirubin 0.00mg/dl Indirect Bilirubin 0.9mg/dl Aspartate Amino Transf (AST/SGOT) 69IU/L Alanine Aminotransferase (ALT/SGPT) 133IU/L Alkaline Phosphatase 132IU/L Total Protein 8.3g/dl Albumin 4.8g/dl Globulin 3.50g/dl Albumin/Globulin Ratio 1.37 Current Medications Medications (Trade) Dose Ordered Sig/Radha Route PRN Reason Start Time Stop Time Status Last Admin Dose Admin Sodium Chloride 1,000 ml @ 1,000 mls/hr Q1H STAT IV 02/07/17 17:21 02/07/17 18:20 DC 02/07/17 18:36 Levetiracetam (Keppra 1,000mg/ 100ml (Pmx)) 100 ml @ 400 mls/hr ONCE STAT IVPB 02/07/17 17:28 02/07/17 17:42 DC 02/07/17 17:28 IV Flush 10 ml 10 ml STK-MED ONCE .ROUTE 02/07/17 18:25 02/07/17 18:26 DC Sodium Chloride (NS) 100 ml @ ud STK-MED ONCE .ROUTE 02/07/17 18:25 02/07/17 18:26 DC Iohexol (Omnipaque 300mg/ ml) 150 ml STK-MED ONCE .ROUTE 02/07/17 18:25 02/07/17 18:26 DC Procedures/MDM PROCEDURE: CT Abdomen and Pelvis with IV contrast. CLINICAL INDICATION: Pain. TECHNIQUE: CT scan of the abdomen and pelvis was performed on a multidetector slice CT scanner. 100 cc of Omnipaque 300 intravenous contrast material was utilized. Sagittal and coronal reformatted images were obtained from the axial source images. Images were reviewed on a high-resolution PACS workstation. Exam CTDlvol = 20 mGy and DLP = 1080 Gy-cm. One of the following 3 dose reduction techniques were used: Automated exposure control; adjustment of the mA and/or kV according to patient size; or use of iterative reconstruction technique. COMPARISON: None. FINDINGS: There is mild pelvic free fluid including the bilateral adnexa. There is a 2 cm probable left ovarian cyst with peripheral enhancing. Uterus is unremarkable. There is moderate retained stool throughout the colon. There is no obstruction or ileus. The appendix is well visualized and normal in size. There is no evidence for diverticulitis. There is mild cutaneous thickening and infiltration surrounding the umbilicus. There is a very small fat containing periumbilical hernia. The liver is overall normal in size. No intrahepatic lesions are identified. The gallbladder is normal in appearance. There is no definite biliary ductal dilation. Pancreas is normal in appearance. The spleen is unremarkable.. There are no adrenal masses. The aorta is normal caliber.. Kidneys are normal in appearance without hydronephrosis, mass or calculus. There is no perinephric collection. Ureters are of normal caliber and without evidence for an obstructing calculus The urinary bladder is normal in appearance.. Uterus is normal appearance. Ovaries are not well visualized. Limited evaluation lung bases is unremarkable. The bones are unremarkable. IMPRESSION: 1. Probable left ovarian cyst. Mild pelvic free fluid. Ruptured ovarian cyst is suspected. 2. No evidence for appendicitis or diverticulitis. 3. Very small fat containing periumbilical hernia. Mild cutaneous thickening with adjacent subcutaneous infiltration involving the umbilicus. This may be an incidental appearance versus inflammation, recommend correlation to site of pain. 4. Moderate stool throughout the colon. No obstruction or ileus. 5. Otherwise negative. RPTAT: HMVK .Roger Bains MD, MD Date Time Electronically viewed and signed by .Roger Bains MD, MD on 02/07/2017 20:18 .K/ CC: SONDRA GRACE DO PROCEDURE: CT head CLINICAL INDICATION: Seizure TECHNIQUE: Contiguous 2.5 mm axial images were obtained from the vertex to the skull base. No intravenous contrast was administered. The calculated dose length product (DLP) = 630.20 mGy-cm. The CTDlvol = 45 mGy. One or more of the following dose reduction techniques were used: Automated exposure control, adjustment of the mA and or KV according to patient size, or use of iterative reconstruction technique. COMPARISON: None FINDINGS: There is no evidence of acute intracranial hemorrhage or acute territorial infarct. No mass or mass effect is seen on this noncontrast study. The ventricles and cisterns are normal in size and configuration. The miles-white matter differentiation is within normal limits. The visualized paranasal sinuses are normally aerated. The bony calvarium is unremarkable IMPRESSION: Unremarkable unenhanced CT of the brain RPTAT: HH .Issac Guerin MD, MD Date Time Electronically viewed and signed by .Issac Guerin MD, on 02/07/2017 19:05 .W/ CC: SONDRA GRACE DO This very questionable whether the patient truly had a seizure or not. She was not postictal which is very unusual status post seizure. She may have had syncopal shaking. The patient states she also had nothing to eat today and she may have had a hypoglycemic seizure or a syncopal seizure from pain from the ovarian rupture. I did cover her with Renal discharge her with Keppra and have her follow up with neurology to rule out seizure or not Departure Diagnosis: Primary Impression: Seizure Additional Impression: Ruptured ovarian cyst Condition: Stable Patient Instructions: Ovarian Cyst, Syncope, Unk Cause, Seizure, New Onset, Unk Cause [Adult] SONDRA GRACE DO Feb 07, 2017 21:42
[2017-02-07 22:02] VITALS: BP 108/76; PULSE 78; RESP 20; TEMP 98.6
== END 2017-02-07 22:04 | disposition home or self-care (01) ==
LOC: FTE 13:31
DX: R56.9 Unspecified convulsions (principal); N83.202 Unspecified ovarian cyst, left side
CPT/HCPCS: 70450; 74177; 80053; 85025; J1953; J7030; Q9967; Z7610; 36415; 96374